=== PATIENT | male | born 1985 | race Caucasian/White ===

== ENCOUNTER 2020-05-19 09:05 | Emergency (ER) | payer BC, SELFPAY ==
[2020-05-19 09:18] VITALS: BP 129/97; PULSE 85; RESP 20; TEMP 37.4; O2SAT 99
[2020-05-19 10:27] LABS: Basophils Absolute Auto 0.1 K/mm3 (0.0-0.1); Basophils Percent Auto 0.8 % (0.2-1.2); Eosinophils Percent Auto 0.5 % (0-4.4); Hematocrit 46.4 % (42.0-52.0); Immature Granulocyte Absolute 0.03 K/mm3 (0.00-0.031); Immature Granulocyte Percent A 0.5 % (0-0.5); Lymphocytes Absolute Auto 1.15 K/mm3 (0.9-3.2); Lymphocytes Percent Auto 18.9 % (18.3-44.2); Mean Corpuscular HGB Conc 34.5 g/dl (32-36); Mean Corpuscular Hemoglobin 30.8 pg (26-34); Mean Corpuscular Volume 89.4 fl (80-100); Mean Platelet Volume 10.7 fl (7.4-10.4); Monocytes Absolute Auto 0.9 K/mm3 (0.1-0.6); Monocytes Percent Auto 14.9 % (2.6-8.5); Neutrophils Absolute Auto 3.9 K/mm3 (1.3-6.7); Neutrophils Percent Auto 64.4 % (45.5-73.1); Platelet Count Result 187 k/mm3 (150-375); Red Blood Count 5.19 M/mm3 (4.6-6.20); White Blood Count 6.1 K/mm3 (4.5-10.0)
[2020-05-19 10:47] LABS: Anion Gap 6 mmol/L (8-16); Blood Urea Nitrogen 14 mg/dL (9-20); CRP 0.9 mg/dL (<1.0); Carbon Dioxide 30 mmol/L (22-30); Chloride 102 mmol/L (98-107); Estimated CRCL calculation 102 ml/min; Estimated Glomerular Filt Rate > 60; Glucose 94 mg/dL (75-110); Sodium 138 mmol/L (137-145)
[2020-05-19 10:50] VITALS: BP 129/84; PULSE 82; RESP 20; O2SAT 99
[2020-05-19] MEDS: SODIUM CHLORIDE 0.9% IV 1,000 ML 999 ML IV CONT (10:58)
[2020-05-19] MEDS: KETOROLAC 30 MG/ML VIAL (*BKC) IV PUSH (10:58)
[2020-05-19 11:16] LABS: Erythrocyte Sedimentation Rate 4 mm/hr (0-20)
[2020-05-19 11:40] VITALS: BP 140/96; PULSE 81; RESP 20; O2SAT 99
--- NOTE | 2020-05-19 12:09 | ED.BACK ---
HPI - Back Pain/Injury General Chief Complaint: Back Pain/Injury Stated Complaint: lower back pain & fever Time Seen by Provider: 05/19/20 09:32 History of Present Illness HPI Narrative: Patient is a 35-year-old male who presents ER with left-sided back pain. Progressed over the last 2 days. Yesterday he developed fever of 100.8 ?F. He was again febrile today so he opted to come in for further evaluation. Pain radiates down his left leg to his thigh. Intermittent. Worse with movement. No improvement with [id number] medications at home. Denies any trauma to his back. No recent skin or dental infections. No history of IV drug abuse. Traveled home from [place] 2 weeks ago. 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 No loss of smell or taste. Son has a sore throat but he reports him and his son suffer from allergies and give him sinus congestion which she is currently experiencing. Related Data Allergies Allergy/AdvReac Type Severity Reaction Status Date / Time Penicillins Allergy Unknown Unknown Verified 05/19/20 09:24 Review of Systems Review of Systems: All systems reviewed & are unremarkable except as noted in HPI and below Constitutional: Constitutional: Denies chills, Reports fever(s) and Denies weakness ENT: Reports nasal congestion (Reports chronic due to allergies) and Reports sore throat Gastrointestinal: Gastrointestinal: Denies abdominal pain, Denies nausea and Denies vomiting Musculoskeletal: Musculoskeletal: Reports back pain Neurologic: Denies focal weakness and Denies numbness PMFSH Past Medical History Medical History (Updated 05/19/20 @ 12:18 by Nabeel Carter MD) Healthy adult male Surgical History Surgical History (Updated 05/19/20 @ 12:12 by Nabeel Carter MD) No history of previous surgery Social History Social History Smoking status: Never smoker Second hand tobacco smoke exposure: No Alcohol intake: never Gender identity (if verbalized by the patient): Male Exam Narrative: Exam Narrative: GENERAL: Well-appearing, well-nourished, and in no acute distress. HEAD: Normocephalic, atraumatic. CHEST: Clear to auscultation. No respiratory distress. HEART: Regular rate and rhythm. Normal peripheral pulses. ABDOMEN: Soft, nontender, nondistended. Back: No midline tenderness. Mild left paraspinal muscular tenderness L4 region. No palpable spasm. EXTREMITIES: Normal range of motion. No edema. SKIN: Warm, dry, no rash. NEURO: Alert and oriented x3. PSYCH: Normal mood and affect. Course Course Emergency Course: Inflammatory markers negative. Spinal epidural abscess felt less likely as he is not an IV drug abuser and has had no recent infections. Does not appear to have a reason to have a source for spinal epidural abscess. Patient has localized left-sided back pain which would also be atypical for this. Patient has been swabbed for Covid. His flu test was negative. Patient instructed to self isolate and follow-up with PCP. Vital Signs Vital signs: Vital Signs Temperature 99.3 F 05/19/20 09:18 Pulse Rate 85 05/19/20 09:18 Respiratory Rate 20 05/19/20 09:18 Blood Pressure 129/97 H 05/19/20 09:18 Pulse Oximetry 99 05/19/20 09:18 Temperature 99.3 F 05/19/20 09:18 Pulse Rate 81 05/19/20 11:40 Respiratory Rate 20 05/19/20 11:40 Blood Pressure 140/96 H 05/19/20 11:40 Pulse Oximetry 99 05/19/20 11:40 MDM - Back Pain/Injury Lab Data Result diagrams: 05/19/20 10:15 05/19/20 10:15 Labs: Lab Results 05/19/20 05/19/20 05/19/20 Range/Units 10:15 10:15 11:31 WBC 6.1 (4.5-10.0) K/mm3 RBC 5.19 (4.6-6.20) M/mm3 Hgb 16.0 (14.0-18.0) g/dL Hct 46.4 (42.0-52.0) % MCV 89.4 (80-100) fl MCH 30.8 (26-34) pg MCHC 34.5 (32-36) g/dl RDW 12.0 (11.5-14.5) % Plt Count 187 (150-3
[2020-05-19 13:46] VITALS: BP 125/86; PULSE 75; RESP 20; O2SAT 100
[2020-05-19 13:55] VITALS: BP 136/74; PULSE 74; RESP 14; O2SAT 97
[2020-05-19 21:25] LABS: SARS-CoV-2 RNA PCR Positive
== END 2020-05-19 14:00 | disposition home or self-care (01) ==
PROVIDERS: Emergency Provider Emergency Medicine
DX: U07.1 COVID-19 (principal); M54.42 Lumbago with sciatica, left side
CPT/HCPCS: 36415; 80048; 85025; 85652; 86140; 87635; 87804; 96361; 96374; 99284; C9803; J1885; J7030; U0003